=== PATIENT | female | born 1955 | race Caucasian/White ===

== ENCOUNTER 2016-07-24 06:23 | Day surgery (SDC) | payer OTHER ==
--- NOTE | ~2016-07-24 | EGD ---
EGD REPORT [facility] [address] [address] NAME: KELECHI GARCIA : [birth year] STATUS : REG [facility]#: [id number] AGE: 60 ADM/REG DATE : 07/24/16 MR#: [id number] REPORT SERV DATE: 07/24/16 DICTATED BY: DATE: REPORT STATUS : Draft TRANSCRIBED BY: [employer] DATE: 07/24/16 [facility] Patient Name: Kelechi Garcia Date of : 1955 Attending MD: ANABELLE MCKEON MD Procedure Date No Time: 07/24/2016 Procedure: Flexible Sigmoidoscopy Indications: High risk colon cancer surveillance: Personal history of familial adenomatous polyposis Referring MD: KEVIN LOO MD Medicines: Monitored Anesthesia Care Complications: No immediate complications. Procedure: Pre-Anesthesia Assessment: - ASA Grade Assessment: II - A patient with mild systemic disease. After obtaining informed consent, the endoscope was passed under direct vision. Throughout the procedure, the patient's blood pressure, pulse, and oxygen saturations were monitored continuously. The GIF H190 [id number] was introduced through the anus and advanced to the ileocolonic anastomosis. After obtaining informed consent, the endoscope was passed under direct vision. Throughout the procedure, the patient's blood pressure, pulse, and oxygen saturations were monitored continuously.The flexible sigmoidoscopy was accomplished without difficulty. The patient tolerated the procedure well. The quality of the bowel preparation was excellent. Findings: The perianal and digital rectal examinations were normal. There was evidence of a prior end-to-side ileo-colonic anastomosis in the rectum. This was patent. This was characterized by healthy appearing mucosa. This was traversed. No other significant abnormalities were identified in a careful examination of the remainder of the colon. There is no endoscopic evidence of mass, polyps or ulcerations in the rectum at 30 cm Prox to Anus. No additional abnormalities were found on retroflexion. Impression: - Patent end-to-side ileo-colonic anastomosis. Recommendation: - Discharge patient to home. - Continue present medications. - Regular diet. - Repeat flexible sigmoidoscopy in 1 year for EGD REPORT [facility] [address] [place] [address] NAME: KELECHI GARCIA : [birth year] [place]US : [place] [facility] [place] [id number] AGE: 60 ADM/REG DATE : 07/24/16 MR#: [id number] REPORT SERV DATE: 07/24/16 DICTATED BY: DATE: REPORT STATUS : Draft TRANSCRIBED BY: [employer] DATE: 07/24/16 surveillance. Procedure Code(s): --- Professional --- G0104, Colorectal cancer screening; flexible sigmoidoscopy Diagnosis Code(s): --- Professional --- Z98.0, Intestinal bypass and anastomosis status Z86.010, Personal history of colonic polyps CPT copyright 2013 [employer]. All rights reserved. The codes documented in this report are preliminary and upon compensation supervisor review may be revised to meet current compliance requirements. ANABELLE MCKEON MD 07/24/2016 7:59 AM This report has been signed electronically. Number of Addenda: 0 Note Initiated On: 07/24/2016 7:26 AM Scope Withdrawal Time 0 hours 0 minutes 0 seconds [address] [place] [address]
--- NOTE | ~2016-07-24 | EGD ---
EGD REPORT [facility] [address] [address] NAME: KELECHI GARCIA : [birth year] STATUS : REG [facility]#: [id number] AGE: 60 ADM/REG DATE : 07/24/16 MR#: [id number] REPORT SERV DATE: 07/24/16 DICTATED BY: DATE: REPORT STATUS : Draft TRANSCRIBED BY: [employer] DATE: 07/24/16 [facility] Center Patient Name: Kelechi Garcia Date of : 1955 Attending MD: ANABELLE MCKEON MD Procedure Date No Time: 07/24/2016 Procedure: Upper GI endoscopy Indications: Surveillance for malignancy due to personal history of Familial Adenomatous Polyposis Referring MD: KEVIN LOO MD Medicines: Monitored Anesthesia Care Complications: No immediate complications. Procedure: Pre-Anesthesia Assessment: - ASA Grade Assessment: II - A patient with mild systemic disease. After obtaining informed consent, the endoscope was passed under direct vision. Throughout the procedure, the patient's blood pressure, pulse, and oxygen saturations were monitored continuously. The GIF H190 [id number] was introduced through the mouth, and advanced to the fourth part of duodenum. The upper GI endoscopy was accomplished without difficulty. The patient tolerated the procedure well. Findings: The examined esophagus was normal. The Z-line was regular and was found 39 cm from the incisors. There is no endoscopic evidence of Owen's esophagus, areas of erosion, hiatus hernia or ulcerations in the entire esophagus. The entire examined stomach was normal. There is no endoscopic evidence of ulceration, varices, polyps or mass in the entire examined stomach. Two diminutive sessile polyps with were found in the duodenal bulb. These polyps were removed with a cold biopsy forceps. Resection and retrieval were complete. The exam of the duodenum was otherwise normal. There is no endoscopic evidence of inflammation, mucosal abnormalities or ulceration in the entire examined duodenum. The cardia and gastric fundus were normal on retroflexion. Impression: - Normal esophagus. - Z-line regular, 39 cm from the incisors. - Normal stomach. - Two duodenal polyps. Resected and retrieved. EGD REPORT [address] [address] NAME: KELECHI GARCIA : [birth year] STATUS : REG [facility]#: [id number] AGE: 60 ADM/REG DATE : 07/24/16 MR#: [id number] REPORT SERV DATE: 07/24/16 DICTATED BY: DATE: REPORT STATUS : Draft TRANSCRIBED BY: [employer] DATE: 07/24/16 Recommendation: - Patient has a contact number available for emergencies. The signs and symptoms of potential delayed complications were discussed with the patient. Return to normal activities tomorrow. Written discharge instructions were provided to the patient. - Return to previous diet. - Discharge patient to home. - Continue present medications. - Await pathology results. - Repeat the upper endoscopy in 1 year for surveillance. Procedure Code(s): --- Professional --- 34614, Esophagogastroduodenoscopy, flexible, transoral; with biopsy, single or multiple Diagnosis Code(s): --- Professional --- K31.7, Polyp of stomach and duodenum Z86.010, Personal history of colonic polyps CPT copyright 2013 [employer]. All rights reserved. The codes documented in this report are preliminary and upon sling operator review may be revised to meet current compliance requirements. ANABELLE MCKEON MD 07/24/2016 7:56 AM This report has been signed electronically. Number of Addenda: 0 Note Initiated On: 07/24/2016 7:30 AM Scope Withdrawal Time 0 hours 0 minutes 0 seconds [address] [address]
[~2016-07-24 06:23] MED LIST: BEN25 PO; CLIN150 PO; EPIPEN0.3 IM; FLEX PO; MULTIPLE VIT PO; SYMAX-SL0.125 MG PO; VITAMIN D1000 UNI1 PO; XOPENEX INH; Z-PAK PO; ZYRTEC ALLGY10 MG PO
== END 2016-07-24 23:59 | disposition home health service (06) ==
LOC: DMU 06:23
PROVIDERS: Internal Medicine Gastroenterology
PROC: 0DB98ZX Excision of Duodenum, Via Natural or Artificial Opening Endoscopic, Diagnostic (ICD-10-PCS; principal; 2016-07-24 07:30)
PROC: 0DJD8ZZ Inspection of Lower Intestinal Tract, Via Natural or Artificial Opening Endoscopic (ICD-10-PCS; 2016-07-24 07:30)
DX: Z12.11 Encounter for screening for malignant neoplasm of colon (principal); J45.909 Unspecified asthma, uncomplicated; Q40.2 Other specified congenital malformations of stomach; M19.90 Unspecified osteoarthritis, unspecified site; Z86.010 Personal history of colon polyps; Z98.0 Intestinal bypass and anastomosis status; Z88.8 Allergy status to other drugs, medicaments and biological substances; Z79.899 Other long term (current) drug therapy; Z98.890 Other specified postprocedural states; Z90.49 Acquired absence of other specified parts of digestive tract
CPT/HCPCS: 82962; 88305